=== PATIENT | male | born 1970 | race Caucasian/White ===

== ENCOUNTER 2017-08-14 10:50 | Emergency (ER) | payer OTHER ==
[~2017-08-14] VITALS: Ht 188 cm; Wt 113.6 kg
[2017-08-14] MEDS ORDERED: KETOROLAC TROMETHAMINE 30 MG/ML VIAL IM ONE (12:45)
[2017-08-14 14:05] VITALS: BP 126/71
== END 2017-08-14 14:11 | disposition home or self-care (01) ==
LOC: EMS 10:52
DX: M54.2 Cervicalgia (principal); M25.511 Pain in right shoulder; M54.6 Pain in thoracic spine
CPT/HCPCS: 73030; 96372; 99284; J1885

== ENCOUNTER 2017-09-07 09:43 | Emergency (ER) | payer OTHER ==
[~2017-09-07] VITALS: Ht 177.8 cm; Wt 113.6 kg
[2017-09-07 09:50] VITALS: BP 142/99
[2017-09-07] MEDS ORDERED: PROPARACAINE HCL 0.5% 15 ML OPHTHALMIC SOLUTION OS ONE (10:30)
[2017-09-07] MEDS ORDERED: PROPARACAINE/FLUORESCEIN SOD 0.5-0.25% 0.5 ML OPHTHALMIC SOLUTION OD ONE (10:45)
[2017-09-07] MEDS ORDERED: IBUPROFEN 600 MG TABLET PO ONE (11:15)
== END 2017-09-07 12:00 | disposition home or self-care (01) ==
LOC: EMS 09:48
DX: S05.91XA Unspecified injury of right eye and orbit, initial encounter (principal); W22.8XXA Striking against or struck by other objects, initial encounter; Y93.89 Activity, other specified; Y92.89 Other specified places as the place of occurrence of the external cause; Y99.8 Other external cause status
CPT/HCPCS: 99283